=== PATIENT | female | born 1965 | race Caucasian/White ===

== ENCOUNTER 2017-08-22 11:10 | Emergency (ER) | payer OTHER ==
[~2017-08-22] VITALS: Ht 157.5 cm; Wt 98.7 kg
[~2017-08-22 11:10] MED LIST: CYCL-36 PO; DARV PO; PAXI25TA3
[2017-08-22 11:14] VITALS: BP 162/73; PULSE 91; RESP 16; TEMP 98.3; O2SAT 98
[2017-08-22] MEDS ORDERED: LOSA25TA PO (11:23)
[2017-08-22] MEDS ORDERED: AMOXICILLIN/CLAVULANATE K 875 MG TAB PO ONE (11:45)
[2017-08-22] MEDS ORDERED: AUGM875T3 PO (11:46)
--- NOTE | 2017-08-22 11:46 | PD ---
HPI Chief Complaint: ENT Complaint Time Seen by Provider: 11:34 Travel History International Travel<30 days: No Contact w/Intl Traveler<30days: No Traveled to known affect area: No History of Present Illness HPI 52-year-old female with history of hypertension here for evaluation of sore throat. Patient reported the symptoms started about 2 days ago and have progressively worsened. She also complains of some generalized malaise. 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 She denies fevers or chills. Pain is moderate to severe, constant, worse with swallowing. Pain is mainly located in her left throat. She is able to swallow and tolerate her secretions. No vomiting. No cough. PFSH Past Medical History Hx Anticoagulant Therapy: No Blood Disorders: No Depression: Yes Cancer: No Cardiovascular Problems: Yes (HTN) Diabetes: No Endocrine: No Genitourinary: No Hypertension: Yes Immune Disorder: No Musculoskeletal: No Neurologic: No Psychiatric: No Reproductive: No Respiratory: No Immunizations Current: Yes ?: Not Past Surgical History Abdominal Surgery: Yes AICD: No Arteriovenous Shunt: No Cardiac Surgery: No Section: Yes Ear Surgery: No Endocrine Surgery: No Eye Surgery: No Genitourinary Surgery: Yes (LEFT KIDNEY DONATION) Gynecologic Surgery: No Hysterectomy: Yes (03/28/2007) Insulin Pump: No Joint Replacement: No Oral Surgery: No Pacemaker: No Thoracic Surgery: No Other Surgery: Yes (sinus surgery x 2) Social History Alcohol Use: No Tobacco Use: No Substance Use: No Allergies-Medications (Allergen,Severity, Reaction): Coded Allergies: morphine (Unverified Allergy, Mild, 08/22/17) codeine (Unverified Adverse Reaction, Severe, NAUSEA AND VOMITING, ) Uncoded Allergies: K-Y JELLY (Allergy, Mild, Irritation, 03/28/07) Reported Meds & Prescriptions Reported Meds & Active Scripts Active Reported Losartan (Losartan Potassium) 25 Mg Tab 25 Mg PO HS Review of Systems Except as stated in HPI: all other systems reviewed are Neg Physical Exam Narrative GENERAL: Well-developed, well-nourished, pleasant, comfortable, no apparent distress. SKIN: Focused skin assessment warm/dry. No rash. HEAD: Atraumatic. Normocephalic. EYES: Pupils equal and round. No scleral icterus. No injection or drainage. ENT: No nasal bleeding or discharge. Mucous membranes pink and moist. Left tonsil with erythema and exudates. Uvula is midline. Normal phonation. No drooling or stridor. No trismus. NECK: Trachea midline. No JVD. Left anterior cervical chain lymphadenopathy. CARDIOVASCULAR: Regular rate and rhythm. RESPIRATORY: No accessory muscle use. Clear to auscultation. Breath sounds equal bilaterally. GASTROINTESTINAL: Abdomen soft, non-tender, nondistended. MUSCULOSKELETAL: No obvious deformities. No clubbing. No cyanosis. No edema. NEUROLOGICAL: Awake and alert. No obvious cranial nerve deficits. Motor grossly within normal limits. Normal speech. PSYCHIATRIC: Appropriate mood and affect; insight and judgment normal. Data Data Last Documented VS Vital Signs Date Time Temp Pulse Resp B/P (MAP) Pulse Ox O2 Delivery O2 Flow Rate FiO2 08/22/17 11:20 16 08/22/17 11:14 98.3 91 162/73 (102) 98 Orders Orders Amoxicil-Clavulanate (Augmentin) (08/22/17 11:45) [facility] Medical Decision Making Medical Screen Exam Complete: Yes Emergency Medical Condition: Yes Differential Diagnosis Strep pharyngitis, tonsillitis, mononucleosis, peritonsillar abscess/ retropharyngeal abscess/deep space neck infection less likely Narrative Course Vital signs show heart rate 91, blood pressure 162/73, pulse ox 98% on room air , oral temp of 98.3F. Patient has signs and symptoms consistent with strep pharyngitis, meeting 3 points on the [employer] criteria. Plan is to start her on Augmentin. Tylenol/ ibuprofen for pain/fever. She will follow-up with her primary care physician this week. She was advised on when to return to the emergency department. She verbalizes understanding and agreement with plan. Diagnosis Primary Impression: Pharyngitis Qualified Codes: J02.9 - Acute pharyngitis, unspecified Referrals: Primary Care Physician 3 days Additional Instructions: Follow-up with your primary care physician this week. Take antibiotic as prescribed. Take Tylenol/ibuprofen for pain/fever. Keep hydrated with plenty of fluids. Return to the emergency department for worsening symptoms or any other concerns as discussed. Scripts Amoxicillin-Clavulanate (Augmentin) 875-125 Mg Tab 1 TAB PO BID for Infection for 10 Days, #20 TAB 0 Refills Prov: Jefferson Red MD 08/22/17 Disposition: 01 DISCHARGE HOME Condition: Stable Jefferson Red MD Aug 22, 2017 11:46
== END 2017-08-22 11:55 | disposition home or self-care (01) ==
LOC: PHEFT 11:10
DX: J02.9 Acute pharyngitis, unspecified (principal); R53.81 Other malaise; I10 Essential (primary) hypertension; F32.9 Major depressive disorder, single episode, unspecified; Z88.5 Allergy status to narcotic agent; Z79.899 Other long term (current) drug therapy
CPT/HCPCS: 99283